=== PATIENT | male | born 1960 | race African-American/Black ===

== ENCOUNTER 2016-10-31 08:37 | Emergency (ER) | payer SELFPAY ==
[~2016-10-31] VITALS: Ht 170.2 cm; Wt 109.1 kg
[~2016-10-31 08:37] MED LIST: COUM10TA PO; FEXO60TA PO; FURO20 PO; IRON325T2 PO; LEVE500 PO; LIPI20TA PO; LISI20 PO; MONT10TA2 PO; PHEN100 PO; PHEN30TA32 PO
[2016-10-31 08:43] VITALS: BP 150/82; PULSE 63; RESP 15; O2SAT 100
[2016-10-31] MEDS ORDERED: SODIUM CHLORIDE 0.9% FLUSH 10 ML FLUSH IVF PRN (09:00)
[2016-10-31] MEDS ORDERED: ACETAMINOPHEN/HYDROcodone 325 MG/5 MG TAB PO ONE (09:00)
--- NOTE | 2016-10-31 09:32 | RADRPT ---
EXAM DATE/TIME: 10/31/2016 09:16 [place] COMPARISON: CHEST SINGLE AP, August 26, 2015, 14:27. INDICATIONS : Chest pain. MEDICAL HISTORY : None. SURGICAL HISTORY : None. ENCOUNTER: Initial ACUITY: 2 days PAIN SCORE: 6/10 LOCATION: Left upper chest FINDINGS: There is cardiomegaly with mild interstitial edema. There is mild elevation of the left mid diaphrag m. Minimal atelectatic changes are seen above the left diaphragm. The portion of the bony skeleton v isualized is unremarkable. CONCLUSION: Elevation left hemidiaphragm Cardiomegaly with mild interstitial edema. Erasto Phoenix MD FACR on October 31, 2016 at 9:28 Board Certified Radiologist. This report was verified electronically.
--- NOTE | 2016-10-31 09:40 | PD ---
HPI Chief Complaint: Chest Pain Time Seen by Provider: 08:42 Travel History International Travel<30 days: No Contact w/Intl Traveler<30days: No Traveled to known affect area: No History of Present Illness HPI 56-year-old male came to the emergency room brought by EMS from [facility] after he had a syncopal episode. Patient says that when he woke up he was having chest pain. He points to the left side of his chest. The dull pain and is 6 out of 10. It's nonradiating. Patient has history of chest pain in the past. As per EMS patient refused to get any nitroglycerin since he was afraid of passing out again. Patient is not allergic to nitroglycerin. Patient tells me that he has history of cardiac disease but has never had any stents put in. He had a stress test done 6 months ago in [place] by his supplier quality engineering manager and was asked to get a repeat stress test. No history of cough or shortness of breath. Patient was in the bus trying to go to see his daughter in [place] when this episode happened. He wished to see only a female physician and did not wish to be examined by my medical student. He asked me repeatedly what I would be doing for his chest pain. He also told me he is allergic to Toradol although it's not listed as an allergy in her medical record. [facility] Past Medical History Narrative Medical List of his past medical, surgical, social and family history is reviewed from the nursing note. Asthma: Yes Blood Disorders: Yes (anemia) Heart Rhythm Problems: No Cancer: No Cardiovascular Problems: Yes High Cholesterol: Yes Chest Pain: Yes Congestive Heart Failure: Yes COPD: No Endocrine: No Genitourinary: No Hypertension: Yes Immune Disorder: No Musculoskeletal: No Neurologic: Yes (seizures 1982) Psychiatric: No Reproductive: No Respiratory: Yes Myocardial Infarction: Yes (2000) Pneumonia: Yes Sleep Apnea: Yes Past Surgical History Abdominal Surgery: Yes Cholecystectomy: Yes Coronary Artery Bypass Graft: Yes Oral Surgery: Yes Tonsillectomy: Yes Other Surgery: Yes (tonsils out and gallbladder out) Social History Alcohol Use: No Tobacco Use: No Substance Use: No Allergies-Medications (Allergen,Severity, Reaction): Coded Allergies: Iodine (Verified Allergy, Severe, Rash, 08/26/15) Penicillin (Verified Allergy, Severe, 08/26/15) Comments List of his allergies reviewed from the nursing note. Reported Meds & Prescriptions Reported Meds & Active Scripts Active Reported Audrey (Fexofenadine HCl) 60 Mg Tab 60 Mg PO DAILY Iron (Ferrous Sulfate) 325 Mg Tab 325 Mg PO DAILY Coumadin 10 mg (Warfarin Sodium) 10 Mg Tab 10 Mg PO DAILY Lipitor 20 Mg Tab (Atorvastatin Calcium) 20 Mg Tab 20 Mg PO HS Singulair (Montelukast Sodium) 10 Mg Tab 10 Mg PO DAILY@0600 Lasix 20 Mg Tab (Furosemide) 20 Mg Tab 20 Mg PO DAILY Prinivil 20 mg (Lisinopril) 20 Mg Tab 20 Mg PO DAILY Dilantin 100 Mg Kapseals (Phenytoin Sodium) 100 Mg Caper 200 Mg PO BID Phenobarbital 30 Mg Tab (Phenobarbital) 30 Mg Tab 30 Mg PO TID Keppra (Levetriacetam) 500 Mg Tab 500 Mg PO BID Narrative Medication List of his home medications reviewed from the nursing note. Review of Systems Except as stated in HPI: all other systems reviewed are Neg Physical Exam Narrative GENERAL: Awake, alert, no obvious distress SKIN: Focused skin assessment warm/dry. HEAD: Atraumatic. Normocephalic. EYES: Pupils equal and round. No scleral icterus. No injection or drainage. Proptosis, pallor ENT: No nasal bleeding or discharge. Mucous membranes pink and moist. NECK: Trachea midline. No JVD. CARDIOVASCULAR: Regular rate and rhythm. No murmur appreciated. RESPIRATORY: No accessory muscle use. Clear to auscultation. Breath sounds equal bilaterally. GASTROINTESTINAL: Abdomen soft, non-tender, nondistended. Hepatic and splenic margins not palpable. MUSCULOSKELETAL: No obvious deformities. No clubbing. No cyanosis. Bilateral 1 + pedal edema NEUROLOGICAL: Awake and alert. No obvious cranial nerve deficits. Motor grossly within normal limits. Normal speech. PSYCHIATRIC: Appropriate mood and affect; insight and judgment normal. Data Data Last Documented VS Vital Signs Date Time Temp Pulse Resp B/P Pulse Ox O2 Delivery O2 Flow Rate FiO2 10/31/16 10:41 68 15 100 Nasal Cannula 2 10/31/16 10:36 150/82 10/31/16 10:36 98.8 Orders Electrocardiogram (10/31/16 08:53) Basic Metabolic Panel (Bmp) (10/31/16 08:53) Ckmb (Isoenzyme) Profile (10/31/16 08:53) Complete Blood Count With Diff (10/31/16 08:53) Magnesium (Mg) (10/31/16 08:53) Troponin I (10/31/16 08:53) Chest, Single Ap (10/31/16 08:53) Ecg Monitoring (10/31/16 08:53) Bilateral Bp Monitoring (10/31/16 08:53) Iv Access Insert/Monitor (10/31/16 08:53) Oximetry (10/31/16 08:53) Oxygen Administration (10/31/16 08:53) Sodium Chloride 0.9% Flush (Ns Flush) (10/31/16 09:00) Acetamin-Hydrocod 325-5 Mg (Margie 5-325 (10/31/16 09:00) Phenytoin (Dilantin) (10/31/16 08:53) CKMB (10/31/16 09:30) CKMB% (10/31/16 09:30) Labs Laboratory Tests Test 10/31/16 09:30 White Blood Count 3.4 TH/MM3 Red Blood Count 3.17 MIL/MM3 Hemoglobin 9.5 GM/DL Hematocrit 30.3 % Mean Corpuscular Volume 95.5 FL Mean Corpuscular Hemoglobin 29.8 PG Mean Corpuscular Hemoglobin 31.2 % Concent Red Cell Distribution Width 14.5 % Platelet Count 223 TH/MM3 Mean Platelet Volume 8.0 FL Neutrophils (%) (Auto) 58.3 % Lymphocytes (%) (Auto) 22.4 % Monocytes (%) (Auto) 18.6 % Eosinophils (%) (Auto) 0.1 % Basophils (%) (Auto) 0.6 % Neutrophils # (Auto) 2.0 TH/MM3 Lymphocytes # (Auto) 0.8 TH/MM3 Monocytes # (Auto) 0.6 TH/MM3 Eosinophils # (Auto) 0.0 TH/MM3 Basophils # (Auto) 0.0 TH/MM3 CBC Comment DIFF FINAL Differential Comment Sodium Level 141 MEQ/L Potassium Level 4.4 MEQ/L Chloride Level 106 MEQ/L Carbon Dioxide Level 29.4 MEQ/L Anion Gap 6 MEQ/L Blood Urea Nitrogen 15 MG/DL Creatinine 0.92 MG/DL Estimat Glomerular Filtration 103 ML/MIN Rate Random Glucose 66 MG/DL Calcium Level 8.6 MG/DL Magnesium Level 2.0 MG/DL Total Creatine Kinase 192 U/L Creatine Kinase MB LESS THAN 0.5 NG/ML Troponin I LESS THAN 0.02 NG/ML Phenytoin (Dilantin) Level 19.7 MCG/ML MDM Medical Decision Making Medical Screen Exam Complete: Yes Emergency Medical Condition: Yes Medical Record Reviewed: Yes Interpretation(s) Twelve-lead EKG was reviewed by me. Normal sinus rhythm, normal axis, peaked T waves. Heart rate of 65 bpm. Differential Diagnosis ACS, non-STEMI, cardiac arrhythmia, electrolyte abnormalities Narrative Course 9:39 AM awaiting for the blood test result. Chest x-rays within normal limit. Patient was given one hydrocodone for his pain. Given his risk factors I have discussed with him about admitting him to the chest pain center. However patient says that he cannot walk on a treadmill. I have educated him that there are other means of doing a stress test for example a chemical stress test. I get some hesitation on the patient's part regarding this. Once the test results of back I will go back and discuss this further with him. 10:50 AM CBC is back. Patient has leukopenia but when I trended back labs. His patient was noticed to be leukopenic persistently. Awaiting for the chemistry and troponin. I was told it was a recollect. 11:22 AM blood test results are still pending and patient wants to leave. He wants to go and see his own doctor since he's not getting morphine. Patient is in full capacity to make decisions for himself. He does realize the risk of leaving without having the blood test completed and possible chest pain workup. He will be leaving against medical advise. Procedures EKG Prior to Arrival: Yes Diagnosis Primary Impression: Chest pain Qualified Code: R07.9 - Chest pain, unspecified type Disposition: AGAINST MEDICAL ADVICE Condition: Serious Deann Jerome MD Oct 31, 2016 09:40 Deann Jerome MD Oct 31, 2016 09:40
[2016-10-31 09:49] LABS: BASOPHIL % 0.6 % (0.0-2.0); EOSINOPHIL % 0.1 % (0.0-4.0); HEMATOCRIT 30.3 % (39.0-51.0); HEMO FLAGS DIFF FINAL; LYMPH % 22.4 % (9.0-44.0); LYMPHOCYTE # 0.8 TH/MM3 (1.0-4.8); MEAN CELL VOLUME 95.5 FL (80.0-100.0); MEAN CORPUSCULAR HEMOGLOBIN 29.8 PG (27.0-34.0); MEAN CORPUSCULAR HGB CONC 31.2 % (32.0-36.0); MONO % 18.6 % (0.0-8.0); NEUT % 58.3 % (16.0-70.0); PLATELET COUNT 223 TH/MM3 (150-450); RED BLOOD COUNT 3.17 MIL/MM3 (4.50-5.90); RED CELL DISTRIBUTION WIDTH 14.5 % (11.6-17.2); WHITE BLOOD COUNT 3.4 TH/MM3 (4.0-11.0)
[2016-10-31 10:36] VITALS: BP_SYST 148; BP_SYST 150; BP_DIAS 80; BP_DIAS 82; PULSE 55; PULSE 60; RESP 14; RESP 16; TEMP 98.8; O2SAT 100
[2016-10-31 10:49] LABS: ANION GAP 6 MEQ/L (5-15); BICARBONATE 29.4 MEQ/L (21.0-32.0); CHLORIDE 106 MEQ/L (98-107); GLOMERULAR FILTRATION RATE 103 ML/MIN (>89); POTASSIUM 4.4 MEQ/L (3.5-5.1); SODIUM (NA) 141 MEQ/L (136-145)
[2016-10-31 10:51] LABS: BLOOD UREA NITROGEN 15 MG/DL (7-18)
[2016-10-31 10:53] LABS: CREATINE KINASE 192 U/L (39-308)
[2016-10-31 11:06] LABS: CKMB LESS THAN 0.5 NG/ML (0.5-3.6)
--- NOTE | 2016-11-01 21:48 | EKG ---
Date Performed: 10/31/2016 Time Performed: 08:49:09 PTAGE: 56 years EKG: Sinus rhythm Since previous tracing, no significant change noted NORMAL ECG PREVIOUS TRACING : 08/26/2015 23.18 DOCTOR: Martha Morrell Interpretating Date/Time 11/01/2016 21:46:04
== END 2016-10-31 11:26 | disposition left against medical advice (07) ==
LOC: NEPC 08:37
DX: R07.9 Chest pain, unspecified (principal); I50.9 Heart failure, unspecified; I10 Essential (primary) hypertension; I25.2 Old myocardial infarction; Z95.1 Presence of aortocoronary bypass graft; Z88.0 Allergy status to penicillin
CPT/HCPCS: 71010; 80048; 80185; 82550; 82552; 83735; 84484; 85025; 93005; 99285